=== PATIENT | male | born 1940 | race Caucasian/White ===

== ENCOUNTER 2022-06-04 16:01 | Emergency (ER) | payer MEDICARE, BC ==
[2022-06-04] MEDS ORDERED: Take Home: Amoxicillin/Clavulanate K 875-125 MG Tab, 2 Tab Pack PO ONE (16:20)
== END 2022-06-04 16:30 | disposition home or self-care (01) ==
LOC: VM.ED 16:01
DX: T81.49XA Infection following a procedure, other surgical site, initial encounter (principal); S61.552A Open bite of left wrist, initial encounter; Z88.1 Allergy status to other antibiotic agents; Z79.899 Other long term (current) drug therapy; Z87.891 Personal history of nicotine dependence; W54.0XXA Bitten by dog, initial encounter
CPT/HCPCS: 87070; 87077; 99283; A9270-GY

== ENCOUNTER 2023-06-18 11:00 | Emergency (ER) | payer MEDICARE, BC ==
[2023-06-18] MEDS: Albuterol/Ipratropium 3.0-0.5 MG/3 ML Neb Soln NEB ONE (11:21)
[2023-06-18 11:23] LABS: BASOPHILS PERCENT AUTO 0.2 % (0.2-1.2); EOSINOPHILS ABSOLUTE AUTO 0.2 x10^3/uL (0.0-0.5); EOSINOPHILS PERCENT AUTO 1.5 % (0.0-4.0); HEMATOCRIT 28.2 % (40.0-52.0); HEMOGLOBIN 10.1 g/dL (14.0-18.0); IMMATURE GRAN ABSOLUTE AUTO 0.03 x10^3/uL (0.00-0.07); LYMPHOCYTES ABSOLUTE AUTO 1.9 x10^3/uL (1.0-4.8); LYMPHOCYTES PERCENT AUTO 15.9 % (25.0-50.0); MEAN CORPUSCULAR HEMOGLOBIN 33.9 pg (26.0-32.0); MEAN CORPUSCULAR HGB CONC 35.8 g/dL (32.0-36.0); MEAN CORPUSCULAR VOLUME 94.6 fL (78.0-93.0); MONOCYTES ABSOLUTE AUTO 0.9 x10^3/uL (0.0-0.8); MONOCYTES PERCENT AUTO 7.4 % (2.0-11.0); NEUTROPHILS ABSOLUTE AUTO 8.9 x10^3/uL (1.8-7.7); NEUTROPHILS PERCENT AUTO 74.7 % (50.0-80.0); PLATELET COUNT,PLT 128 x10^3/uL (130-400); RED BLOOD CELL COUNT 2.98 x10^6/uL (4.5-6.0); WHITE BLOOD CELL COUNT,WBC 11.9 x10^3/uL (4.0-10.0)
[2023-06-18 11:49] LABS: A/G RATIO 0.74; ALANINE AMINOTRANSFERASE,ALT 26 U/L (16-63); ALBUMIN 2.9 g/dL (3.4-5.0); ALKALINE PHOSPHATASE 82 U/L (46-116); ASPARTATE AMNIOTRANSFERASE,AST 20 U/L (15-37); BLOOD UREA NITROGEN,BUN 26 mg/dL (7-18); C-REACTIVE PROTEIN 8.53 mg/dL (<=0.30); CARBON DIOXIDE,CO2 29 mmol/L (21-32); CHLORIDE,CL 101 mmol/L (98-107); CREATININE 1.4 mg/dL (0.70-1.30); GLUCOSE RANDOM 110 mg/dL (70-99); POTASSIUM,K 4.3 mmol/L (3.5-5.1); PRO B-TYPE NATRIUR PEPT,BNPPRO 141 pg/mL (<=450); PROTEIN TOTAL,TP 6.8 g/dL (6.4-8.2); SODIUM,NA 138 mmol/L (136-145)
[2023-06-18 11:50] LABS: ANION GAP 12.3 mmol/L (5-15); ESTIMATED GFR 50 mL/min (>=60)
[2023-06-18] MEDS: methylPREDNISolone Sodium Succinate 125 MG/2 ML SDV IVPUSH ONE (12:02)
[2023-06-18] MEDS: Iopamidol 755 Mg/ML 100 ML Bottle IVPUSH ONE (12:27)
[2023-06-18] MEDS: Albuterol 0.083% 2.5 MG/3 ML Neb Soln NEB ONE (12:30)
[2023-06-18] MEDS: cefTRIAXone 1 GM Vial IVPUSH ONE (13:35)
== END 2023-06-18 13:46 | disposition home or self-care (01) ==
LOC: VM.ED 11:00
DX: J44.0 Chronic obstructive pulmonary disease with (acute) lower respiratory infection (principal); J18.9 Pneumonia, unspecified organism; J44.1 Chronic obstructive pulmonary disease with (acute) exacerbation; K21.9 Gastro-esophageal reflux disease without esophagitis; E11.22 Type 2 diabetes mellitus with diabetic chronic kidney disease; I12.9 Hypertensive chronic kidney disease with stage 1 through stage 4 chronic kidney disease, or unspecified chronic kidney disease; N18.9 Chronic kidney disease, unspecified; E11.319 Type 2 diabetes mellitus with unspecified diabetic retinopathy without macular edema; I25.2 Old myocardial infarction; Z87.891 Personal history of nicotine dependence; Z88.1 Allergy status to other antibiotic agents; Z88.8 Allergy status to other drugs, medicaments and biological substances; Z79.899 Other long term (current) drug therapy
CPT/HCPCS: 71046; 71275; 80053; 83880; 85025; 85379; 86140; 94640; 96374; 96375; 99284; 99285-25; J0696; J2930; J7620-GY; Q9967

== ENCOUNTER 2024-09-06 07:09 | Emergency (ER) | payer MEDICARE, BC ==
[2024-09-06] MEDS: HYDROmorphone 0.5 MG/0.5 ML Syringe IVPUSH ONE (08:35)
[2024-09-06] MEDS: Losartan 50 MG Tab PO ONE (09:10)
[2024-09-06] MEDS: Labetalol 20 MG/4 ML Syringe IVPUSH ONE (09:13)
[2024-09-06] MEDS: Hydrochlorothiazide 25 MG Tab PO ONE (09:14)
== END 2024-09-06 10:45 | disposition home or self-care (01) ==
LOC: VM.ED 07:09
DX: M54.12 Radiculopathy, cervical region (principal); I10 Essential (primary) hypertension; Z86.16 Personal history of COVID-19; J44.9 Chronic obstructive pulmonary disease, unspecified; K21.9 Gastro-esophageal reflux disease without esophagitis; E11.9 Type 2 diabetes mellitus without complications; Z79.899 Other long term (current) drug therapy; Z79.891 Long term (current) use of opiate analgesic; Z88.1 Allergy status to other antibiotic agents; Z88.8 Allergy status to other drugs, medicaments and biological substances
CPT/HCPCS: 70450; 72125; 73110-LT; 96374; 96375; 99284; 99284-25; A9270-GY; J1171; J1920

== ENCOUNTER 2024-09-12 21:56 | Inpatient (IN) | payer MEDICARE, BC ==
[2024-09-12 22:39] LABS: BASOPHILS PERCENT AUTO 0.2 % (0.2-1.2); EOSINOPHILS ABSOLUTE AUTO 0.1 x10^3/uL (0.0-0.5); HEMATOCRIT 28.8 % (40.0-52.0); HEMOGLOBIN 10.1 g/dL (14.0-18.0); IMMATURE GRAN ABSOLUTE AUTO 0.07 x10^3/uL (0.00-0.07); LYMPHOCYTES ABSOLUTE AUTO 1.6 x10^3/uL (1.0-4.8); LYMPHOCYTES PERCENT AUTO 14.4 % (25.0-50.0); MEAN CORPUSCULAR HEMOGLOBIN 33.4 pg (26.0-32.0); MEAN CORPUSCULAR HGB CONC 35.1 g/dL (32.0-36.0); MEAN CORPUSCULAR VOLUME 95.4 fL (78.0-93.0); MONOCYTES ABSOLUTE AUTO 0.9 x10^3/uL (0.0-0.8); NEUTROPHILS ABSOLUTE AUTO 8.6 x10^3/uL (1.8-7.7); NEUTROPHILS PERCENT AUTO 75.8 % (50.0-80.0); PLATELET COUNT,PLT 306 x10^3/uL (130-400); RED BLOOD CELL COUNT 3.02 x10^6/uL (4.5-6.0); WHITE BLOOD CELL COUNT,WBC 11.3 x10^3/uL (4.0-10.0)
[2024-09-12 22:46] LABS: ANION GAP 15.5 mmol/L (5-15); CALCIUM 9.7 mg/dL (8.5-10.1); CREATININE 1.6 mg/dL (0.70-1.30); EST CRCL DRUG DOSING (CG) 36.75 mL/min; POTASSIUM,K 5.5 mmol/L (3.5-5.1)
[2024-09-13] MEDS ORDERED: Sodium Chloride 0.9% 10 ML Syringe FLUSH PRN (00:31)
[2024-09-13] MEDS: cefTRIAXone 1 GM Vial IVPUSH ONE (00:50)
[2024-09-13] MEDS ORDERED: Polyethylene Glycol 3350 Powder 17 GM Packet PO PRN (01:49)
[2024-09-13] MEDS ORDERED: Naloxone 0.4 MG/ML SDV IVPUSH PRN (01:49)
[2024-09-13] MEDS ORDERED: Melatonin 3 MG Tab PO PRN (01:49)
[2024-09-13] MEDS ORDERED: Ondansetron 4 MG Tab.DIS PO PRN (01:49)
[2024-09-13] MEDS ORDERED: Albuterol HFA 18 Gm Inhaler INH PRN (02:04)
[2024-09-13] MEDS ORDERED: GLYCERIN EYEBOTH PRN (02:04)
[2024-09-13] MEDS ORDERED: CARBOXYMETHYLCELLULOS EYEBOTH PRN (02:04)
[2024-09-13] MEDS ORDERED: [UNRECOGNIZED DRUG - OTHER] EYEBOTH PRN (02:04)
[2024-09-13] MEDS: Sodium Chloride 0.9% 1,000 ML IV SCH ×2 (02:25→05:48)
[2024-09-13] MEDS: Heparin Sodium 5,000 Units/ML Vial SUBCUT SCH (02:26)
[2024-09-13] MEDS: Morphine 2 MG/ML SYRINGE IVPUSH PRN (02:27)
[2024-09-13] MEDS ORDERED: Hypromellose 0.3% Ophth Soln 15 ML Bottle EYEBOTH PRN (02:34)
[2024-09-13] MEDS: Sodium Zirconium Cyclosilicate 10 GM Packet PO ONE (02:42)
[2024-09-13] MEDS: Pantoprazole 40 MG Tab.CR PO SCH (06:56)
[2024-09-13] MEDS: Formoterol/Mometasone 200-5 MCG 13 GM Inhaler INH SCH (06:57)
[2024-09-13] MEDS: Sodium Zirconium Cyclosilicate 10 GM Packet PO SCH (07:14)
[2024-09-13] MEDS ORDERED: Albuterol 0.083% 2.5 MG/3 ML Neb Soln NEB PRN (08:07)
[2024-09-13] MEDS: oxyCODONE 5 MG Tab PO PRN (08:23)
[2024-09-13] MEDS: Loratadine 10 MG Tab PO SCH (08:24)
[2024-09-13] MEDS: Cholecalciferol (Vitamin D3) 25 MCG Tab PO SCH (08:24)
[2024-09-13] MEDS: Ferrous Sulfate 325 MG Tab PO SCH (08:24)
[2024-09-13 08:25] LABS: HEMATOCRIT 28.2 % (40.0-52.0); HEMOGLOBIN 9.7 g/dL (14.0-18.0); MEAN CORPUSCULAR HEMOGLOBIN 32.9 pg (26.0-32.0); MEAN CORPUSCULAR HGB CONC 34.4 g/dL (32.0-36.0); MEAN CORPUSCULAR VOLUME 95.6 fL (78.0-93.0); RED BLOOD CELL COUNT 2.95 x10^6/uL (4.5-6.0); WHITE BLOOD CELL COUNT,WBC 8.5 x10^3/uL (4.0-10.0)
[2024-09-13] MEDS: Fish Oil/Omega-3 Fatty Acids 1 Gm Cap PO SCH (08:25)
[2024-09-13] MEDS: Calcium Carbonate/Vitamin D3 1250 MG-5 MCG Tab PO SCH (08:25)
[2024-09-13 08:34] LABS: CALCIUM 9.5 mg/dL (8.5-10.1); CREATININE 1.6 mg/dL (0.70-1.30); EST CRCL DRUG DOSING (CG) 36.75 mL/min; POTASSIUM,K 4.3 mmol/L (3.5-5.1)
[2024-09-13 08:38] LABS: ANION GAP 15.3 mmol/L (5-15)
[2024-09-13 08:51] LABS: APPEARANCE,URINE CLEAR (CLEAR); BILIRUBIN,URINE NEGATIVE (NEGATIVE); COLOR,URINE YELLOW (YELLOW); GLUCOSE,URINE NEGATIVE (NEGATIVE); KETONES,URINE NEGATIVE (NEGATIVE); LEUKOCYTE ESTERASE,URINE NEGATIVE (NEGATIVE); NITRITE,URINE NEGATIVE (NEGATIVE); OCCULT BLOOD,URINE NEGATIVE (NEGATIVE); PROTEIN,URINE NEGATIVE (NEGATIVE); UROBILINOGEN,URINE 0.2 EU/dL (0.2)
[2024-09-13 08:58] LABS: BACTERIA,URINE NOT SEEN /HPF (NOT SEEN); MUCUS,URINE NOT SEEN /LPF (NOT SEEN); RBC,URINE NOT SEEN /HPF (NOT SEEN); SQUAMOUS EPITHELIAL CELLS,UR RARE /HPF (NOT SEEN); WBC,URINE 0-5 /HPF (NOT SEEN)
[2024-09-13] MEDS ORDERED: Non-Formulary Medication 1 Each (Cetirizine [Zyrtec] 10 MG Tablet) PO SCH (09:00)
[2024-09-13] MEDS ORDERED: Non-Formulary Medication 1 Each (Fluticasone/Salmeterol [Advair 500-50] 14 PUFF/DISKUS Dis INH SCH (09:00)
[2024-09-13] MEDS ORDERED: Non-Formulary Medication 1 Each (Omeprazole Magnesium [Prilosec Otc] 20 MG Tablet.Dr) PO SCH (09:00)
[2024-09-13] MEDS: Non-Formulary Medication 1 Each (Lysine [Lysine] 1,000 MG Tablet) PO SCH (10:54)
[2024-09-13] MEDS: Acetaminophen 325 MG Tab PO PRN (15:50)
[2024-09-13] MEDS: Multivitamin Tab PO SCH (20:31)
[2024-09-13] MEDS: Magnesium Oxide 400 MG Tab PO SCH (20:31)
[2024-09-13] MEDS: cefTRIAXone 1 GM Vial IVPUSH SCH (20:31)
[2024-09-13] MEDS: Montelukast 10 MG Tab PO SCH (20:32)
[2024-09-13] MEDS ORDERED: MAGNESIUM OXIDE 500 MG PO SCH (21:00)
[2024-09-14 08:06] LABS: BASOPHILS PERCENT AUTO 0.2 % (0.2-1.2); EOSINOPHILS ABSOLUTE AUTO 0.2 x10^3/uL (0.0-0.5); EOSINOPHILS PERCENT AUTO 1.8 % (0.0-4.0); HEMOGLOBIN 8.9 g/dL (14.0-18.0); LYMPHOCYTES ABSOLUTE AUTO 2.1 x10^3/uL (1.0-4.8); LYMPHOCYTES PERCENT AUTO 19.4 % (25.0-50.0); MEAN CORPUSCULAR HEMOGLOBIN 33.3 pg (26.0-32.0); MEAN CORPUSCULAR HGB CONC 34.2 g/dL (32.0-36.0); MEAN CORPUSCULAR VOLUME 97.4 fL (78.0-93.0); MONOCYTES PERCENT AUTO 8.8 % (2.0-11.0); NEUTROPHILS ABSOLUTE AUTO 7.5 x10^3/uL (1.8-7.7); NEUTROPHILS PERCENT AUTO 68.9 % (50.0-80.0); PLATELET COUNT,PLT 362 x10^3/uL (130-400); RED BLOOD CELL COUNT 2.67 x10^6/uL (4.5-6.0); WHITE BLOOD CELL COUNT,WBC 10.9 x10^3/uL (4.0-10.0)
[2024-09-14 08:19] LABS: CALCIUM 8.9 mg/dL (8.5-10.1); CREATININE 1.3 mg/dL (0.70-1.30); EST CRCL DRUG DOSING (CG) 45.24 mL/min; POTASSIUM,K 4.5 mmol/L (3.5-5.1)
[2024-09-14 08:22] LABS: ANION GAP 12.5 mmol/L (5-15)
[2024-09-14 15:53] LABS: BASOPHILS PERCENT AUTO 0.2 % (0.2-1.2); EOSINOPHILS ABSOLUTE AUTO 0.2 x10^3/uL (0.0-0.5); EOSINOPHILS PERCENT AUTO 1.7 % (0.0-4.0); HEMATOCRIT 25.6 % (40.0-52.0); HEMOGLOBIN 8.5 g/dL (14.0-18.0); IMMATURE GRAN ABSOLUTE AUTO 0.12 x10^3/uL (0.00-0.07); LYMPHOCYTES ABSOLUTE AUTO 1.8 x10^3/uL (1.0-4.8); LYMPHOCYTES PERCENT AUTO 19.2 % (25.0-50.0); MEAN CORPUSCULAR HEMOGLOBIN 32.3 pg (26.0-32.0); MEAN CORPUSCULAR HGB CONC 33.2 g/dL (32.0-36.0); MEAN CORPUSCULAR VOLUME 97.3 fL (78.0-93.0); MONOCYTES ABSOLUTE AUTO 0.8 x10^3/uL (0.0-0.8); MONOCYTES PERCENT AUTO 8.8 % (2.0-11.0); NEUTROPHILS ABSOLUTE AUTO 6.5 x10^3/uL (1.8-7.7); NEUTROPHILS PERCENT AUTO 68.8 % (50.0-80.0); PLATELET COUNT,PLT 326 x10^3/uL (130-400); RED BLOOD CELL COUNT 2.63 x10^6/uL (4.5-6.0); WHITE BLOOD CELL COUNT,WBC 9.4 x10^3/uL (4.0-10.0)
[2024-09-15 07:05] LABS: BASOPHILS PERCENT AUTO 0.1 % (0.2-1.2); EOSINOPHILS ABSOLUTE AUTO 0.1 x10^3/uL (0.0-0.5); EOSINOPHILS PERCENT AUTO 1.2 % (0.0-4.0); HEMATOCRIT 25.5 % (40.0-52.0); HEMOGLOBIN 8.6 g/dL (14.0-18.0); LYMPHOCYTES PERCENT AUTO 21.8 % (25.0-50.0); MEAN CORPUSCULAR HEMOGLOBIN 32.7 pg (26.0-32.0); MEAN CORPUSCULAR HGB CONC 33.7 g/dL (32.0-36.0); MONOCYTES ABSOLUTE AUTO 0.8 x10^3/uL (0.0-0.8); MONOCYTES PERCENT AUTO 8.8 % (2.0-11.0); NEUTROPHILS ABSOLUTE AUTO 6.3 x10^3/uL (1.8-7.7); PLATELET COUNT,PLT 330 x10^3/uL (130-400); RED BLOOD CELL COUNT 2.63 x10^6/uL (4.5-6.0); WHITE BLOOD CELL COUNT,WBC 9.3 x10^3/uL (4.0-10.0)
[2024-09-15 07:15] LABS: CALCIUM 9.3 mg/dL (8.5-10.1); CREATININE 1.2 mg/dL (0.70-1.30); POTASSIUM,K 4.7 mmol/L (3.5-5.1)
[2024-09-15 07:24] LABS: ANION GAP 12.7 mmol/L (5-15)
[2024-09-16 05:07] LABS: URINE SODIUM 72 mEq/L
[2024-09-16 08:07] LABS: URINE SODIUM 37 mEq/L
== END 2024-09-16 09:50 | disposition swing bed (61) | DRG 603 ==
LOC: VM.ED 21:56 → VM.MS 09-13 00:40
PROVIDERS: ADMIT Internal Medicine; ATTEND Internal Medicine
DX: L03.114 Cellulitis of left upper limb (principal); E87.1 Hypo-osmolality and hyponatremia; L02.512 Cutaneous abscess of left hand; I12.9 Hypertensive chronic kidney disease with stage 1 through stage 4 chronic kidney disease, or unspecified chronic kidney disease; J44.9 Chronic obstructive pulmonary disease, unspecified; K21.9 Gastro-esophageal reflux disease without esophagitis; N18.9 Chronic kidney disease, unspecified; E11.40 Type 2 diabetes mellitus with diabetic neuropathy, unspecified; E11.22 Type 2 diabetes mellitus with diabetic chronic kidney disease; E11.42 Type 2 diabetes mellitus with diabetic polyneuropathy; Z79.51 Long term (current) use of inhaled steroids; M19.90 Unspecified osteoarthritis, unspecified site; D50.9 Iron deficiency anemia, unspecified; N18.30 Chronic kidney disease, stage 3 unspecified; G89.29 Other chronic pain; M25.511 Pain in right shoulder; E87.5 Hyperkalemia; S51.812A Laceration without foreign body of left forearm, initial encounter; S81.811A Laceration without foreign body, right lower leg, initial encounter; W01.0XXA Fall on same level from slipping, tripping and stumbling without subsequent striking against object, initial encounter; Z88.1 Allergy status to other antibiotic agents; Z88.8 Allergy status to other drugs, medicaments and biological substances; Z98.49 Cataract extraction status, unspecified eye; Z96.659 Presence of unspecified artificial knee joint; Z79.899 Other long term (current) drug therapy; Z98.890 Other specified postprocedural states
CPT/HCPCS: 36415; 73200; 80048; 81001; 82550; 83930; 83935; 84300; 85025; 85027; 87040; 94640; 95851-GO; 96374; 97161-GP; 97165-GO; 97535-GO; 97760-GO; 99284; 99284-25; A9270-GY; J0696; J1644; J2270; J7030

== ENCOUNTER 2024-09-16 08:57 | Inpatient (IN) | payer MEDICARE, BC ==
[2024-09-16] MEDS ORDERED: Albuterol 0.083% 2.5 MG/3 ML Neb Soln NEB PRN (14:35)
[2024-09-16] MEDS ORDERED: Naloxone 0.4 MG/ML SDV IVPUSH PRN (14:35)
[2024-09-16] MEDS ORDERED: Hypromellose 0.3% Ophth Soln 15 ML Bottle EYEBOTH PRN (14:35)
[2024-09-16] MEDS ORDERED: Morphine 2 MG/ML SYRINGE IVPUSH PRN (14:35)
[2024-09-16] MEDS: oxyCODONE 5 MG Tab PO PRN (15:06)
[2024-09-16] MEDS: Calcium Carbonate/Vitamin D3 1250 MG-5 MCG Tab PO SCH (17:08)
[2024-09-16] MEDS: Ferrous Sulfate 325 MG Tab PO SCH (17:08)
[2024-09-16] MEDS: Pantoprazole 40 MG Tab.CR PO SCH (17:08)
[2024-09-16] MEDS: Formoterol/Mometasone 200-5 MCG 13 GM Inhaler INH SCH (20:01)
[2024-09-16] MEDS: Montelukast 10 MG Tab PO SCH (20:02)
[2024-09-16] MEDS: Magnesium Oxide 400 MG Tab PO SCH (20:02)
[2024-09-16] MEDS: Multivitamin Tab PO SCH (20:02)
[2024-09-16] MEDS: cefTRIAXone 1 GM Vial IVPUSH SCH (20:02)
[2024-09-16] MEDS: Fish Oil/Omega-3 Fatty Acids 1 Gm Cap PO SCH (20:02)
[2024-09-17] MEDS: Cholecalciferol (Vitamin D3) 25 MCG Tab PO SCH (08:35)
[2024-09-17] MEDS: Loratadine 10 MG Tab PO SCH (08:35)
[2024-09-18] MEDS: Sodium Chloride 0.9% 10 ML Syringe FLUSH PRN (20:55)
[2024-09-19] MEDS: Melatonin 3 MG Tab PO PRN (23:55)
[2024-09-20] MEDS: Acetaminophen 325 MG Tab PO PRN (00:22)
[2024-09-20] MEDS: Polyethylene Glycol 3350 Powder 17 GM Packet PO PRN (17:06)
[2024-09-21] MEDS: Ondansetron 4 MG Tab.DIS PO PRN (08:46)
[2024-09-24 06:54] LABS: BASOPHILS PERCENT AUTO 0.2 % (0.2-1.2); EOSINOPHILS ABSOLUTE AUTO 0.1 x10^3/uL (0.0-0.5); EOSINOPHILS PERCENT AUTO 1.2 % (0.0-4.0); HEMATOCRIT 27.8 % (40.0-52.0); HEMOGLOBIN 9.3 g/dL (14.0-18.0); IMMATURE GRAN ABSOLUTE AUTO 0.04 x10^3/uL (0.00-0.07); LYMPHOCYTES ABSOLUTE AUTO 2.4 x10^3/uL (1.0-4.8); LYMPHOCYTES PERCENT AUTO 19.8 % (25.0-50.0); MEAN CORPUSCULAR HEMOGLOBIN 32.5 pg (26.0-32.0); MEAN CORPUSCULAR HGB CONC 33.5 g/dL (32.0-36.0); MEAN CORPUSCULAR VOLUME 97.2 fL (78.0-93.0); MONOCYTES PERCENT AUTO 8.2 % (2.0-11.0); NEUTROPHILS ABSOLUTE AUTO 8.5 x10^3/uL (1.8-7.7); NEUTROPHILS PERCENT AUTO 70.3 % (50.0-80.0); RED BLOOD CELL COUNT 2.86 x10^6/uL (4.5-6.0); WHITE BLOOD CELL COUNT,WBC 12.1 x10^3/uL (4.0-10.0)
[2024-09-24 07:07] LABS: CALCIUM 9.8 mg/dL (8.5-10.1); CREATININE 1.3 mg/dL (0.70-1.30); EST CRCL DRUG DOSING (CG) 45.24 mL/min; POTASSIUM,K 4.3 mmol/L (3.5-5.1)
[2024-09-24 07:08] LABS: ANION GAP 11.3 mmol/L (5-15)
[2024-09-24 07:10] LABS: PLATELET COUNT,PLT 320 x10^3/uL (130-400)
[2024-09-24] MEDS: Cholecalciferol (Vitamin D3) 5,000 UNIT Tab PO SCH (09:15)
[2024-09-24] MEDS: Iopamidol 755 Mg/ML 100 ML Bottle IVPUSH ONE (10:07)
[2024-09-24] MEDS: predniSONE 20 MG Tab PO SCH (16:50)
[2024-09-24] MEDS: Levofloxacin 500 MG Tab PO SCH (17:00)
[2024-09-24] MEDS: Heparin Sodium 5,000 Units/ML Vial SUBCUT SCH (21:36)
[2024-09-25 06:55] LABS: BASOPHILS PERCENT AUTO 0.1 % (0.2-1.2); HEMOGLOBIN 9.1 g/dL (14.0-18.0); IMMATURE GRAN ABSOLUTE AUTO 0.04 x10^3/uL (0.00-0.07); LYMPHOCYTES ABSOLUTE AUTO 1.6 x10^3/uL (1.0-4.8); LYMPHOCYTES PERCENT AUTO 11.6 % (25.0-50.0); MEAN CORPUSCULAR HEMOGLOBIN 32.6 pg (26.0-32.0); MEAN CORPUSCULAR HGB CONC 33.7 g/dL (32.0-36.0); MEAN CORPUSCULAR VOLUME 96.8 fL (78.0-93.0); MONOCYTES PERCENT AUTO 6.9 % (2.0-11.0); NEUTROPHILS ABSOLUTE AUTO 11.5 x10^3/uL (1.8-7.7); NEUTROPHILS PERCENT AUTO 81.1 % (50.0-80.0); PLATELET COUNT,PLT 307 x10^3/uL (130-400); RED BLOOD CELL COUNT 2.79 x10^6/uL (4.5-6.0)
[2024-09-25 07:11] LABS: WHITE BLOOD CELL COUNT,WBC 14.1 x10^3/uL (4.0-10.0)
[2024-09-25 07:23] LABS: A/G RATIO 0.56; ALBUMIN 2.5 g/dL (3.4-5.0); ANION GAP 14.6 mmol/L (5-15); BILIRUBIN TOTAL 0.5 mg/dL (0.2-1.0); CALCIUM 9.6 mg/dL (8.5-10.1); CREATININE 1.4 mg/dL (0.70-1.30); POTASSIUM,K 4.6 mmol/L (3.5-5.1)
== END 2024-09-25 13:00 | disposition home or self-care (01) | DRG 602 ==
LOC: VM.MS 10:42
PROVIDERS: ADMIT Physician Assistant; ATTEND Physician Assistant
DX: L03.114 Cellulitis of left upper limb (principal); J18.9 Pneumonia, unspecified organism; E87.1 Hypo-osmolality and hyponatremia; J44.9 Chronic obstructive pulmonary disease, unspecified; N18.30 Chronic kidney disease, stage 3 unspecified; D50.9 Iron deficiency anemia, unspecified; D63.1 Anemia in chronic kidney disease; J45.40 Moderate persistent asthma, uncomplicated; K21.9 Gastro-esophageal reflux disease without esophagitis; M19.90 Unspecified osteoarthritis, unspecified site; M47.816 Spondylosis without myelopathy or radiculopathy, lumbar region; E11.42 Type 2 diabetes mellitus with diabetic polyneuropathy; E11.22 Type 2 diabetes mellitus with diabetic chronic kidney disease; Z96.659 Presence of unspecified artificial knee joint; E87.5 Hyperkalemia; Z79.51 Long term (current) use of inhaled steroids; Z79.899 Other long term (current) drug therapy; Z88.8 Allergy status to other drugs, medicaments and biological substances; Z98.49 Cataract extraction status, unspecified eye; Z98.890 Other specified postprocedural states
CPT/HCPCS: 36415; 71275; 80048; 80053; 84145; 84484; 85025; 85652; 86140; 93005; 94640; 95851-GO; 97110-GP; 97112-GP; 97116-GP; 97164-GP; 97530-GP; 97535-GO; 97760-GO; A9270-GY; J0696; J1644; J3490; J7512; Q3014; Q9967

== ENCOUNTER 2025-08-25 20:50 | Emergency (ER) | payer MEDICARE ==
[2025-08-25] MEDS ORDERED: Sodium Chloride 0.9% 10 ML Syringe FLUSH PRN (20:56)
[2025-08-25 21:09] LABS: BASOPHILS ABSOLUTE AUTO 0.0 x10^3/uL (0.0-0.2); BASOPHILS PERCENT AUTO 0.4 % (0.2-1.2); EOSINOPHILS ABSOLUTE AUTO 0.2 x10^3/uL (0.0-0.5); EOSINOPHILS PERCENT AUTO 1.8 % (0.0-4.0); IMMATURE GRAN ABSOLUTE AUTO 0.01 x10^3/uL (0.00-0.07); IMMATURE GRAN PERCENT AUTO 0.10 % (0.00-0.43); LYMPHOCYTES ABSOLUTE AUTO 2.7 x10^3/uL (1.0-4.8); LYMPHOCYTES PERCENT AUTO 31.7 % (25.0-50.0); MONOCYTES ABSOLUTE AUTO 0.7 x10^3/uL (0.0-0.8); MONOCYTES PERCENT AUTO 8.5 % (2.0-11.0); NEUTROPHILS ABSOLUTE AUTO 4.9 x10^3/uL (1.8-7.7); NEUTROPHILS PERCENT AUTO 57.5 % (50.0-80.0); PLATELET COUNT,PLT 177 x10^3/uL (130-400); RED BLOOD CELL COUNT 3.19 x10^6/uL (4.5-6.0)
[2025-08-25 21:27] LABS: WHITE BLOOD CELL COUNT,WBC 8.4 x10^3/uL (4.0-10.0)
[2025-08-25 21:33] LABS: A/G RATIO 0.92; ALANINE AMINOTRANSFERASE,ALT 24.0 U/L (16-63); ASPARTATE AMNIOTRANSFERASE,AST 24.0 U/L (15-37); BILIRUBIN TOTAL 0.8 mg/dL (0.2-1.0); BLOOD UREA NITROGEN,BUN 34.0 mg/dL (7-18); CARBON DIOXIDE,CO2 25.0 mmol/L (21-32); CHLORIDE,CL 104.0 mmol/L (98-107); CREATINE KINASE,CK 161.0 U/L (39-308); CREATININE 1.5 mg/dL (0.70-1.30); EST CRCL DRUG DOSING (CG) 38.53 mL/min; ESTIMATED GFR 46.0 mL/min (>=60); GLUCOSE RANDOM 115.0 mg/dL (70-99); POTASSIUM,K 4.0 mmol/L (3.5-5.1); PROTEIN TOTAL,TP 7.1 g/dL (6.4-8.2); SODIUM,NA 140.0 mmol/L (136-145)
[2025-08-25 21:38] LABS: PRO B-TYPE NATRIUR PEPT,BNPPRO 329.0 pg/mL (<=450)
[2025-08-25] MEDS: Ondansetron 4 MG/2 ML SDV IVPUSH ONE (21:47)
[2025-08-25] MEDS: Magnesium Sulfate 2 GM/50 mL 2 GM in Premix Bag 1 BAG IV ONE (21:58)
== END 2025-08-26 00:03 | disposition home or self-care (01) ==
LOC: VM.ED 20:50
DX: I48.0 Paroxysmal atrial fibrillation (principal); J44.89 Other specified chronic obstructive pulmonary disease; I12.9 Hypertensive chronic kidney disease with stage 1 through stage 4 chronic kidney disease, or unspecified chronic kidney disease; N18.9 Chronic kidney disease, unspecified; E11.22 Type 2 diabetes mellitus with diabetic chronic kidney disease; K21.9 Gastro-esophageal reflux disease without esophagitis; Z79.899 Other long term (current) drug therapy; Z88.1 Allergy status to other antibiotic agents
CPT/HCPCS: 36415; 71045; 80053; 82550; 83735; 83880; 84484; 85025; 85379; 93005; 93010; 96365; 96366; 96375; 99284; 99285-25; A9270-GY; J2270; J2405; J3475